=== PATIENT | male | born 1970 | race Caucasian/White ===

== ENCOUNTER → 2018-10-09 08:27 | Outpatient (CLI) | payer OTHER, SELFPAY ==
--- NOTE | 2018-10-09 08:37 | DI.RAD.S_ITS ---
PROCEDURE: XR ANKLE LT MIN 3V INDICATIONS: left ankle pain TECHNIQUE: 3 views of the ankle were acquired. COMPARISON: None. FINDINGS: Bones: No fractures or dislocations. Ankle mortise is normally aligned. No suspicious bony lesions. Soft tissues: No tibiotalar joint effusion. Achilles tendon appears normal. Mild enthesopathy at the Achilles tendon insertion on the calcaneus. IMPRESSION: Mild enthesopathy at the Achilles insertion on the calcaneus. If there is further concern for Achilles tendon pathology, ultrasound or MRI may be useful. Dictated by: Dee Peña M.D. on 10/09/2018 at 8:06 Approved by: Dee Peña M.D. on 10/09/2018 at 8:07
== END ==
PROVIDERS: Family Provider Family Medicine; PCP Family Medicine; Visit Provider Physician Assistant
DX: M25.572 Pain in left ankle and joints of left foot (principal); M77.32 Calcaneal spur, left foot
CPT/HCPCS: 73610

== ENCOUNTER → 2021-08-25 15:31 | Outpatient (CLI) | payer OTHER, SELFPAY ==
--- NOTE | 2021-08-25 15:36 | DI.US.S_ITS ---
PROCEDURE: US ABDOMEN LIMITED INDICATIONS: UMBILICAL HERNIA WITHOUT OBSTRUCTION TECHNIQUE: Real-time focused scanning was performed of the abdomen, with image documentation. COMPARISON: None. FINDINGS: Fat containing umbilical hernia is noted. Umbilical hernia neck measures 2.0 centimeters. No herniated bowel identified. The herniated fat is partially reducible. IMPRESSION: Partially reducible, fat containing umbilical hernia. Dictated by: Angela Trujillo MD, PhD on 08/25/2021 at 16:52 Approved by: Angela Trujillo MD, PhD on 08/25/2021 at 16:53
== END ==
PROVIDERS: Family Provider Family Medicine; PCP Family Medicine; Referring Provider Family Medicine; Visit Provider Family Medicine
DX: K42.9 Umbilical hernia without obstruction or gangrene (principal)
CPT/HCPCS: 76705

== ENCOUNTER → 2021-10-10 15:31 | Outpatient (CLI) | payer OTHER, SELFPAY ==
[2021-10-10 16:50] LABS: COVID19 -Nasal RAPID Negative (Negative)
== END ==
PROVIDERS: Family Provider Family Medicine; PCP Family Medicine; Visit Provider Surgery
DX: Z20.822 Contact with and (suspected) exposure to COVID-19 (principal); Z01.812 Encounter for preprocedural laboratory examination
CPT/HCPCS: 87635; C9803

== ENCOUNTER 2021-10-11 11:42 | Day surgery (SDC) | payer OTHER, SELFPAY ==
[2021-10-05 15:09] VITALS: BMI 31.2
[2021-10-11] VITALS (7 sets, daily range): BP systolic 136–155; BP diastolic 87–102; PULSE 70–85; RESP 10–16; TEMP 36.1–36.5; O2SAT 95–99; BMI 31.2
[2021-10-11] MEDS: LACTATED RINGERS 1,000 ML 42 ML IV (12:07)
--- NOTE | 2021-10-11 12:23 | PM.HP.1 ---
History of Present Illness History of Present Illness Date Patient Seen: 10/11/21 Time Patient Seen: 12:23 Chief complaint: SDC Narrative: Jethro is here for his umbilical hernia repair with mesh. No changes since he was seen in the office 2 months ago. Patient History Family & Social History Social History: household members significant other Tobacco & Substance use: Smoking Status Former smoker alcohol intake current alcohol intake frequency 0-2 drinks per day Substance Use Type does not use Meds Home Medications and Allergies Home Medications Medication Instructions Recorded Confirmed Type apple cider vinegar 500 mg tablet 500 mg PO .QD 09/09/21 10/05/21 History cyanocobalamin (vitamin B-12) 1,000 mcg PO DAILY 09/09/21 10/05/21 History 1,000 mcg capsule multivitamin (Daily Multi-Vitamin 1 tab PO DAILY 09/09/21 10/05/21 History tablet) omega 0-wxp-qqb-fish oil 300 1 cap PO DAILY 09/09/21 10/05/21 History mg-1,000 mg capsule (Fish Oil) sour metz extract 1,000 mg 1,000 mg PO .QD 09/09/21 10/05/21 History capsule (Tart Metz Extract) Allergies Allergy/AdvReac Type Severity Reaction Status Date / Time No Known Drug Allergies Allergy Verified 10/11/21 12:03 Exam Vital Signs (past 8 hours): - 10/11/21 11:56 Temperature 97.5 F L Pulse Rate 85 Respiratory Rate 15 Blood Pressure 151/98 H Pulse Oximetry 98 Oxygen Delivery Method Room Air Oxygen Delivery Method Room Air Narrative Exam Narrative: Moderately sized umbilical hernia Assessment & Plan Assessment and plan (1) Umbilical hernia: Qualifiers: Obstruction and gangrene presence: without obstruction or gangrene Qualified Code(s): K42.9 - Umbilical hernia without obstruction or gangrene Status: Acute Plan We reviewed the risks and benefits of an open umbilical hernia repair with mesh and he would like to proceed. Time Spent With Patient Critical Care time: I spent a total of [] minutes of critical care time on this patient's care today; this time is exclusive of procedural time.
[2021-10-11] MEDS: CEFAZOLIN 2 GM/20 ML SYRINGE IV (12:35)
--- NOTE | 2021-10-11 12:48 | SUR.OPER ---
Supine on padded OR bed, head on pillow, arms secured on padded arm boards at <90 degrees abduction, legs uncrossed, safety belt at thigh, tape over blanket over lower legs. Pillow under knees, Gel pad under bilateral heels.
[2021-10-11] MEDS: BUPIVACAINE 0.5% (PF) VIAL 10 ML INJ (13:00)
[2021-10-11] MEDS: LIDOCAINE 1% W/EPI 10 ML INJ (13:00)
--- NOTE | 2021-10-11 13:33 | PM.OP.1 ---
Operative Date/Time/Diagnoses Date of procedure: 10/11/21 Time of procedure: 13:33 Pre-op diagnosis: Umbilical hernia Post-op diagnosis: same Procedure & Clinicians Procedure: Open umbilical hernia repair with mesh Same procedure as scheduled: Yes Surgeon: Gal Yoo Anesthesia Type: General Operative Notes Procedure in detail: Ancef was administered. The patient was brought to the operating room, placed on the table in the supine position and general endotracheal anesthesia was induced. The abdomen was prepped and draped in the usual fashion. A time-out was performed. A 6 cm curvilinear incision was made inferior to the umbilicus. The hernia sac was dissected free from the surrounding subcutaneous adipose tissue. The sac was dissected off the umbilical stalk using a combination of cautery, sharp and blunt dissection. The hernia sac was dissected free from the fascial ring and allowed to drop back down into the abdomen. The sac was not opened. The fascia was then closed transversely with multiple interrupted 0 Ethibond sutures. The subcutaneous adipose tissue was cleared off of the anterior sheath circumferentially about 2 cm in each direction. A piece of polypropylene mesh was trimmed to fit over the fascial closure and secured with Tisseel. Once the Tisseel was dried the umbilical skin was tacked down to the mesh with a single 3-0 Vicryl stitch. The skin was closed with multiple interrupted 3-0 Vicryl dermal sutures followed by a running 4 Monocryl subcuticular closure. Steri-Strips were applied and an abdominal binder was applied. Post-operative Condition: stable Disposition: PACU
== END 2021-10-11 14:23 | disposition home or self-care (01) ==
PROVIDERS: Family Provider Family Medicine; PCP Family Medicine; Referring Provider Surgery; Visit Provider Surgery
PROC: (CPT 49585; principal; 2021-10-11 13:15)
DX: K42.9 Umbilical hernia without obstruction or gangrene (principal); E66.9 Obesity, unspecified
CPT/HCPCS: 49585; J0690; J1100; J1885; J2250; J2405; J2704; J3010

== ENCOUNTER → 2023-01-02 16:13 | Outpatient (CLI) | payer OTHER, SELFPAY ==
--- NOTE | 2023-01-02 | DI.RAD.S_ITS ---
PROCEDURE: XR KNEE LT 3V INDICATIONS: left knee pain TECHNIQUE: 3 views of the knee were acquired. COMPARISON: None. FINDINGS: Bones: No fractures or dislocations. No suspicious bony lesions. Soft tissues: No joint effusion. No suspicious soft tissue calcifications. IMPRESSION: Normal left knee radiographs Approved by: Allan Weeks M.D. on 01/02/2023 at 17:44
== END ==
PROVIDERS: Family Provider Family Medicine; PCP Family Medicine; Referring Provider Family Medicine; Visit Provider Family Medicine
DX: M25.562 Pain in left knee (principal)
CPT/HCPCS: 73562